=== PATIENT | male | born 1985 | race Caucasian/White ===

== ENCOUNTER 2023-08-07 16:05 | Inpatient (IN) | payer OTHER ==
[2023-08-07 16:21] VITALS: BMI 36.0
[2023-08-07] MEDS ORDERED: levETIRAcetam 500 MG/5 ML INJECTION VIAL IVPB ONE ×2 (16:21→17:47)
[2023-08-07 17:51] LABS: EOS % 1.7 % (0-4.5); HEMATOCRIT 45.1 % (35.4-49); HEMOGLOBIN 15.4 GM/dL (11.7-16.9); LYMPH % 40.5 % (8-40); MCH 32.8 pg (25.7-33.7); MCHC 34.1 g/dl (32.0-35.9); MEAN CELL VOLUME 96.2 fl (80-96); MEAN PLT VOLUME 8.6 fl (7.5-11.1); MONO % 9.6 % (3.8-10.2); NEUT % 47.2 % (42.8-82.8); PLATELET COUNT 317 10^3/uL (134-434); RBC 4.68 M/mm3 (4.00-5.60); RDW 14.5 % (11.9-15.9); WHITE BLOOD COUNT 10.8 K/mm3 (4.0-10.0)
[2023-08-07 18:15] LABS: POTASSIUM 4.3 mmol/L (3.5-5.1)
[2023-08-07 18:17] LABS: ALBUMIN 3.5 g/dl (3.4-5.0); CALCIUM 9.3 mg/dL (8.5-10.1)
[2023-08-07 18:18] LABS: BLOOD UREA NITROGEN 16.9 mg/dL (7-18)
[2023-08-07 18:21] LABS: CREATININE 0.8 mg/dL (0.55-1.3)
[2023-08-07 18:22] LABS: BILIRUBIN,TOTAL 0.2 mg/dL (0.2-1)
[2023-08-07 18:23] LABS: TOT PROT 8.4 g/dl (6.4-8.2)
[2023-08-07 18:27] LABS: EPI CELLS >36 /uL (0-25.1); HYALINE CASTS 19 /uL (0-3.1); PH,URINE 5.5 (5.0-8.0); URINE APPEARANCE CLOUDY; URINE BACTERIA 177 /uL (0-1359); URINE BILIRUBIN 1+ (NEGATIVE); URINE COLOR DK YELLOW; URINE GLUCOSE (UA) NEGATIVE (NEGATIVE); URINE KETONE TRACE (NEGATIVE); URINE LEUK ESTERASE 1+ (NEGATIVE); URINE NITRITE NEGATIVE (NEGATIVE); URINE PROTEIN 1+ (NEGATIVE); URINE RBC 245 /uL (0-23.9); URINE WBC 96 /uL (0-25.8)
[2023-08-07] MEDS ORDERED: CEFTRIAXONE 1,000 MG in DEXTROSE 5%-WATER - 50 ML IVPB ONE (18:35)
[2023-08-07] MEDS ORDERED: CEFTRIAXONE 1 GM/50 ML BAG ONE (18:45)
[2023-08-08 06:52] LABS: BASO % 0.9 % (0-2.0); HEMATOCRIT 43.6 % (35.4-49); HEMOGLOBIN 14.8 GM/dL (11.7-16.9); LYMPH % 47.3 % (8-40); MCHC 33.9 g/dl (32.0-35.9); MEAN CELL VOLUME 97.4 fl (80-96); MEAN PLT VOLUME 8.4 fl (7.5-11.1); MONO % 10.7 % (3.8-10.2); NEUT % 39.1 % (42.8-82.8); PLATELET COUNT 268 10^3/uL (134-434); RBC 4.48 M/mm3 (4.00-5.60); RDW 14.3 % (11.9-15.9); WHITE BLOOD COUNT 8.7 K/mm3 (4.0-10.0)
[2023-08-08 06:55] LABS: POTASSIUM 3.8 mmol/L (3.5-5.1)
[2023-08-08 06:57] LABS: BLOOD UREA NITROGEN 18.7 mg/dL (7-18)
[2023-08-08 07:00] LABS: CREATININE 0.5 mg/dL (0.55-1.3)
[2023-08-08] MEDS ORDERED: cloBAZam 10 MG TABLET ONE (09:04)
[2023-08-08] MEDS ORDERED: PHENobarbital 30 MG TABLET ONE (09:04)
[2023-08-08] MEDS ORDERED: LACOSAMIDE 200 MG TABLET PO ONE (09:05)
[2023-08-08] MEDS ORDERED: lamoTRIgine 100 MG TABLET ONE (09:19)
[2023-08-08] MEDS ORDERED: DIVALPROEX SODIUM 500 MG TABLET E.C. ONE (09:23)
[2023-08-08] MEDS ORDERED: DIVALPROEX SODIUM 250 MG TABLET E.C. ONE (09:23)
[2023-08-08] MEDS: DIVALPROEX 1,000 MG, DIVALPROEX 250 MG PO SCH ×2 (09:44→21:55)
[2023-08-08] MEDS: LACOSAMIDE 200 MG TABLET PO SCH ×2 (09:45→21:56)
[2023-08-08] MEDS: cloBAZam 10 MG TABLET PO SCH ×2 (09:45→21:56)
[2023-08-08] MEDS: lamoTRIgine 100 MG TABLET PO SCH ×2 (09:45→21:54)
[2023-08-08] MEDS: PHENobarbital 30 MG TABLET PO SCH ×2 (09:45→21:56)
[2023-08-08] MEDS: SERTRALINE HCL 50 MG TABLET (FP) PO SCH (09:45)
[2023-08-08] MEDS ORDERED: DIVALPROEX SODIUM 500 MG TABLET E.C. PO SCH (10:00)
[2023-08-08] MEDS ORDERED: DIVALPROEX SODIUM 250 MG TABLET E.C. PO SCH (10:00)
[2023-08-08] MEDS: GABAPENTIN 300 MG CAPSULE PO SCH (21:54)
[2023-08-08] MEDS: traZODone HCL 100 MG TABLET (FP) PO SCH (21:56)
[2023-08-08] MEDS ORDERED: PHENobarbital SODIUM 65 MG/1 ML VIAL IVPUSH ONE (22:42)
[2023-08-08] MEDS ORDERED: Lacosamide 200 MG/20 ML VIAL IVPB SCH (22:45)
[2023-08-08] MEDS: Lacosamide 200 MG/20 ML VIAL IVPB SCH (23:13)
[2023-08-09] MEDS: Lacosamide 200 MG/20 ML VIAL IVPB SCH ×2 (09:55→21:39)
[2023-08-09] MEDS: PHENobarbital 30 MG TABLET PO SCH ×2 (11:37→21:19)
[2023-08-09] MEDS: SERTRALINE HCL 50 MG TABLET (FP) PO SCH (11:37)
[2023-08-09] MEDS: LACOSAMIDE 200 MG TABLET PO SCH ×2 (11:37→21:43)
[2023-08-09] MEDS: DIVALPROEX 1,000 MG, DIVALPROEX 250 MG PO SCH ×2 (11:37→21:17)
[2023-08-09] MEDS: cloBAZam 10 MG TABLET PO SCH ×2 (11:37→21:19)
[2023-08-09] MEDS: lamoTRIgine 100 MG TABLET PO SCH ×2 (11:37→21:43)
[2023-08-09] MEDS ORDERED: traZODone HCL 50 MG TABLET (FP) ONE ×2 (15:05→21:13)
[2023-08-09] MEDS: traZODone HCL 100 MG TABLET (FP) PO SCH (21:17)
[2023-08-09] MEDS: GABAPENTIN 300 MG CAPSULE PO SCH (21:19)
[2023-08-10] MEDS: DIVALPROEX 1,000 MG, DIVALPROEX 250 MG PO SCH ×2 (09:04→21:48)
[2023-08-10] MEDS: lamoTRIgine 100 MG TABLET PO SCH ×2 (09:05→21:59)
[2023-08-10] MEDS: PHENobarbital 30 MG TABLET PO SCH ×2 (09:05→22:02)
[2023-08-10] MEDS: cloBAZam 10 MG TABLET PO SCH ×2 (09:05→22:02)
[2023-08-10] MEDS: SERTRALINE HCL 50 MG TABLET (FP) PO SCH (09:06)
[2023-08-10] MEDS: LACOSAMIDE 200 MG TABLET PO SCH (12:03)
[2023-08-10] MEDS ORDERED: traZODone HCL 50 MG TABLET (FP) ONE (21:40)
[2023-08-10] MEDS: GABAPENTIN 300 MG CAPSULE PO SCH (21:59)
[2023-08-10] MEDS: traZODone HCL 100 MG TABLET (FP) PO SCH (21:59)
[2023-08-10] MEDS: LACOSAMIDE 50 MG TABLET PO SCH (22:02)
[2023-08-11] MEDS: SERTRALINE HCL 50 MG TABLET (FP) PO SCH (10:34)
[2023-08-11] MEDS: PHENobarbital 30 MG TABLET PO SCH ×2 (10:35→22:06)
[2023-08-11] MEDS: DIVALPROEX 1,000 MG, DIVALPROEX 250 MG PO SCH ×2 (10:36→22:42)
[2023-08-11] MEDS: lamoTRIgine 100 MG TABLET PO SCH ×2 (10:37→22:08)
[2023-08-11] MEDS: LACOSAMIDE 50 MG TABLET PO SCH ×2 (10:39→22:06)
[2023-08-11] MEDS: cloBAZam 10 MG TABLET PO SCH ×2 (10:39→22:06)
[2023-08-11] MEDS: GABAPENTIN 300 MG CAPSULE PO SCH (22:07)
[2023-08-11] MEDS: traZODone HCL 100 MG TABLET (FP) PO SCH (22:08)
[2023-08-12] MEDS: DIVALPROEX 1,000 MG, DIVALPROEX 250 MG PO SCH ×2 (10:59→13:00)
[2023-08-12] MEDS: lamoTRIgine 100 MG TABLET PO SCH ×2 (10:59→13:02)
[2023-08-12] MEDS: cloBAZam 10 MG TABLET PO SCH ×2 (10:59→13:02)
[2023-08-12] MEDS: PHENobarbital 30 MG TABLET PO SCH ×2 (11:00→13:02)
[2023-08-12] MEDS: LACOSAMIDE 50 MG TABLET PO SCH ×2 (11:00→13:02)
[2023-08-12] MEDS: SERTRALINE HCL 50 MG TABLET (FP) PO SCH ×2 (11:00→13:02)
[2023-08-12 13:55] VITALS: BP 115/71; PULSE 87; RESP 22; TEMP 97.4
== END 2023-08-12 13:59 | DRG 53 ==
LOC: JER 16:05 → JERBED 19:06 → OBSVTOIN 08-08 10:17 → J4W 08-08 15:59
PROVIDERS: ADMIT Internal Medicine; ATTEND Family Medicine
DX: G40.919 Epilepsy, unspecified, intractable, without status epilepticus (principal); F84.0 Autistic disorder; N47.2 Paraphimosis; G40.813 Lennox-Gastaut syndrome, intractable, with status epilepticus; F32.A Depression, unspecified
CPT/HCPCS: 0241U-QW; 36415; 70450-TC; 71045-TC-FY; 80048; 80053; 80175; 80177; 80184; 81003; 85025; 87086; 93005; 93010; 99285-25; G0378

== ENCOUNTER 2023-08-25 20:03 | Emergency (ER) | payer OTHER ==
[2023-08-25 21:24] VITALS: BMI 33.2
[2023-08-25] MEDS ORDERED: MIDAZOLAM HCL 2 MG/2 ML SINGLE DOSE VIAL ONE ×2 (22:33→22:51)
[2023-08-25] MEDS ORDERED: HALOPERIDOL LACTATE 5 MG/ML ONE ×2 (22:37→23:32)
[2023-08-25] MEDS: HALOPERIDOL LACTATE 5 MG/ML IM ONE ×2 (23:39)
[2023-08-25] MEDS: MIDAZOLAM HCL 2 MG/2 ML SINGLE DOSE VIAL IM ONE ×2 (23:39)
[2023-08-26] MEDS ORDERED: DIPHTH,PERTUSS(ACELL),TET 0.5 ML DISP.SYRIN IM ONE (00:02)
[2023-08-26] MEDS: DIPHTH,PERTUSS(ACELL),TET 0.5 ML DISP.SYRIN IM ONE (00:08)
[2023-08-26] MEDS: LORazepam 2 MG/ML SDV VIAL IM ONE (00:08)
[2023-08-26] MEDS ORDERED: KETAMINE HCL 200 MG/20 ML VIAL ONE ×2 (04:51→08:36)
[2023-08-26] MEDS: KETAMINE HCL 200 MG/20 ML VIAL IM ONE ×2 (04:54→06:27)
[2023-08-26] MEDS ORDERED: KETAMINE HCL 200 MG/20 ML VIAL IM ONE (08:01)
[2023-08-26] MEDS ORDERED: KETAMINE HCL 100 MG/ML - 5ML VIAL IVPUSH ONE (09:00)
[2023-08-26] MEDS: KETAMINE HCL 100 MG/ML - 5ML VIAL IM ONE (09:55)
[2023-08-26] MEDS ORDERED: BACITRACIN ZINC 15 GM TUBE TOPICAL OINTMENT ONE (11:19)
[2023-08-26 11:35] LABS: BASO % 0.5 % (0-2.0); EOS % 1.4 % (0-4.5); HEMOGLOBIN 14.6 GM/dL (11.7-16.9); LYMPH % 34.5 % (8-40); MCH 33.1 pg (25.7-33.7); MEAN CELL VOLUME 97.4 fl (80-96); MEAN PLT VOLUME 8.6 fl (7.5-11.1); MONO % 9.7 % (3.8-10.2); NEUT % 53.9 % (42.8-82.8); PLATELET COUNT 276 10^3/uL (134-434); RBC 4.41 M/mm3 (4.00-5.60); RDW 13.1 % (11.9-15.9); WHITE BLOOD COUNT 8.6 K/mm3 (4.0-10.0)
[2023-08-26 11:55] LABS: POTASSIUM 3.9 mmol/L (3.5-5.1)
[2023-08-26 11:57] LABS: ALBUMIN 3.6 g/dl (3.4-5.0); BLOOD UREA NITROGEN 13.1 mg/dL (7-18)
[2023-08-26 11:59] LABS: CALCIUM 9.3 mg/dL (8.5-10.1)
[2023-08-26 12:01] LABS: CREATININE 0.7 mg/dL (0.55-1.3)
[2023-08-26 12:02] LABS: BILIRUBIN,TOTAL 0.3 mg/dL (0.2-1); TOT PROT 8.5 g/dl (6.4-8.2)
[2023-08-26] MEDS ORDERED: DIVALPROEX SODIUM 500 MG TABLET E.C. PO ONE (12:20)
[2023-08-26] MEDS ORDERED: DIVALPROEX SODIUM 500 MG TABLET E.C. ONE (12:33)
[2023-08-26] MEDS: DIVALPROEX SODIUM 500 MG TABLET E.C. PO ONE (12:42)
[2023-08-26] MEDS: PHENobarbital 30 MG TABLET PO SCH (12:42)
[2023-08-26 15:11] VITALS: BP 107/65; PULSE 95; RESP 19; TEMP 98
== END 2023-08-26 15:13 ==
LOC: JER 20:03
PROC: 3E023GC Introduction of Other Therapeutic Substance into Muscle, Percutaneous Approach (ICD-10-PCS; principal; 2023-08-25)
PROC: 3E023GC Introduction of Other Therapeutic Substance into Muscle, Percutaneous Approach (ICD-10-PCS; 2023-08-25)
PROC: 3E023GC Introduction of Other Therapeutic Substance into Muscle, Percutaneous Approach (ICD-10-PCS; 2023-08-25)
PROC: 3E023GC Introduction of Other Therapeutic Substance into Muscle, Percutaneous Approach (ICD-10-PCS; 2023-08-26)
PROC: 3E023GC Introduction of Other Therapeutic Substance into Muscle, Percutaneous Approach (ICD-10-PCS; 2023-08-26)
PROC: 3E033GC Introduction of Other Therapeutic Substance into Peripheral Vein, Percutaneous Approach (ICD-10-PCS; 2023-08-26)
PROC: 3E0234Z Introduction of Serum, Toxoid and Vaccine into Muscle, Percutaneous Approach (ICD-10-PCS; 2023-08-26)
DX: R56.9 Unspecified convulsions (principal); S00.81XA Abrasion of other part of head, initial encounter; W19.XXXA Unspecified fall, initial encounter
CPT/HCPCS: 36415; 70450-TC; 70486-TC; 72125-TC; 80053; 80164; 85025; 90471; 90715; 93005; 93010; 96372; 96374; 99285-25